=== PATIENT | female | born 1980 ===

== ENCOUNTER 2025-03-02 09:02 | Emergency (ER) | payer OTHER, SELFPAY ==
[2025-03-02] VITALS (14 sets, daily range): BP systolic 92–118; BP diastolic 48–75; BMI 25.1
--- NOTE | 2025-03-02 09:05 | ED.GENMED ---
History of Present Illness
General
Chief Complaint: Abnormal Lab Value
Time Seen by Provider: 03/02/25 09:05
History of Present Illness
History of Present Illness:
FOCUSED PAST MEDICAL HISTORY
- Has had iron infusions in the past, history of meth abuse, remote history of gastric bypass 2008
REVIEW OF OLD RECORDS
- No old records available for review in [facility]
Note:
CHIEF COMPLAINT(S)
Anemia
HISTORY OF PRESENT ILLNESS
The patient is a 44-year-old female presenting to the emergency department for evaluation of anemia. She reports feeling generally well, but recently incarcerated for two weeks, during which time a hemoglobin level of 5.5 g/dL was noted on .
The patient denies any recent blood work prior to this incarceration except for a few years ago. She reports having had anemia in the past and receiving iron infusions. The patient denies noticeable blood in her stools, black or red stools, coughing
up blood, or significant pain. She reports her menstrual cycles are infrequent, occurring roughly once every three months. On further questioning, she admitted to past drug use.
PAST MEDICAL AND SURIGICAL HISTORY
History of anemia requiring iron infusions.
SOCIAL HISTORY
The patient reported a history of past drug use, unspecified in type.
REVIEW OF SYSTEMS
- Constitution: Appears well, denies significant fatigue.
- Gastrointestinal: Denies hematochezia, melena.
- Respiratory: Denies hemoptysis.
- Genitourinary: Reports irregular menstrual periods.
- Hematologic: Previously diagnosed anemia.
PHYSICAL EXAM
General: Alert, appears somewhat pale, no acute distress.
Skin: Warm, dry.
Head: Normocephalic, atraumatic.
Neck: Supple, trachea midline.
Eye, Ears, Nose, Mouth, and Throat: Oral mucosa moist, poor dentition observed.
Cardiovascular: Normal peripheral perfusion, no edema.
Respiratory: Respirations are non-labored.
Gastrointestinal: Abdomen nondistended.
Back: Normal range of motion, normal alignment.
Musculoskeletal: Normal ROM, normal strength.
Neurological: Alert and oriented to person, place, time, and situation, no focal neurological deficit observed.
Psychiatric: Cooperative, appropriate mood & affect.
PLAN
- Blood work to confirm current hemoglobin levels and investigate further anemia etiology.
- Monitor for additional symptoms or changes in clinical status.
DIFFERENTIAL DIAGNOSIS
The Differential Diagnosis includes, in no particular order and is not limited to:
1. Iron deficiency anemia
2. Anemia of chronic disease
3. Hemolytic anemia
4. Aplastic anemia
5. Myelodysplastic syndrome
6. Thalassemia
7. Hypothyroidism
8. Chronic kidney disease
9. Gastrointestinal bleeding
10. Nutritional deficiency anemia (e.g., vitamin B12 or folate deficiency)
EKG
- Sinus 83, normal axis, no acute ST abnormality
LABS
- Hemoglobin 5.4, white count 2.9, platelets normal, glucose 69, iron 23, iron sat 5%
UPDATE
-SUMMARY OF ENCOUNTER
The patient, a 44-year-old female, presented to the emergency department for evaluation of anemia. She had a recent hemoglobin level of 5.5 g/dL noted during a two-week incarceration. The patient reported a history of anemia requiring iron
infusions, but no significant symptoms at present. A rectal examination was performed to assess for gastrointestinal bleeding, which yielded insufficient stool for testing, hence no conclusive results on the presence of bleeding could be obtained.
Considering her lack of severe symptoms and impending release, the plan is to potentially arrange follow-up with a business process coordinator on an outpatient basis.
PLAN
Arrange for blood transfusion as necessary and coordinate outpatient follow-up with a business process coordinator after the patients release. Discuss logistics with the GI team to confirm outpatient arrangements.
INDEPENDENT REVIEW OF LABS AND INTERPRETATION OF TESTS
My independent review of hemoglobin noted a level of 5.5 g/dL.
PATIENT EDUCATION AND COUNSELING
Discussed the importance of follow-up care, especially with a gastrointestinal specialist, to monitor her anemia and rule out potential sources of bleeding.
MEDICAL DECISION MAKING
-Complexity of Data Reviewed: Chronic conditions affecting care [History of anemia requiring iron infusions]. Differential Diagnosis includes Iron deficiency anemia, Anemia of chronic disease, Hemolytic anemia, Aplastic anemia, Myelodysplastic
syndrome, Thalassemia, Hypothyroidism, Chronic kidney disease, Gastrointestinal bleeding, Nutritional deficiency anemia (e.g., vitamin B12 or folate deficiency).
-Data:
Category 1: Hemoglobin levels reviewed with a significant finding of 5.5 g/dL.
Category 3: Discussion of management with a gastroenterology team was considered but not explicitly detailed in the current note.
-Risk: Consideration of Admission/Observation: Escalation of care including admission/observation was considered given the complexity and risk of the patients presenting complaint, exam findings, and/or their underlying comorbidities. However,
ultimately I feel the patient is safe for outpatient management with close follow-up. Reasoning: Work-up reassuring, does not reveal any acute life/organ-threatening processes, patients symptoms are well controlled upon reevaluation, reexamination
is reassuring, vitals are stable, patient agreeable with discharge, reliable for follow-up.
DIAGNOSIS
Anemia, iron deficiency
I discussed case with Dr. Downs who agrees with close outpatient follow-up. I have also given the contact information for local machine cloth examiner as she does have iron deficiency and may need iron infusions in the future. There is no gross blood
noted on digital rectal examination. She has minimal if any symptoms other than some mild weakness.
Phy Exam
Physical Exam
Physical Exam:
See HPI
Course
Orders/Labs/Results
Orders:
Orders
03/02/25 09:05
Electrocardiogram (*1) Urgent
Reason for Study: Fatigue / Weakness
03/02/25 09:06
EKG- Treatment ONCE
03/02/25 09:17
Type And Crossmatch [Type+Screen] Urgent
Complete Blood Count/With Diff Urgent
Comprehensive Metabolic Panel Urgent
Ferritin Urgent
Iron Urgent
Total Iron Binding Urgent
03/02/25 09:32
* Blood Bank Products Urgent
Blood Bank Products: *Packed RBC Leuko (PRBC's
Quantity: 2
Transfuse Today: Yes
Reason: Anemia
Abnormal Lab Results
03/02/25
09:17
WBC 2.9 L 10^3/uL
(4.8-10.8)
RBC 3.28 L 10^6/uL
(4.20-5.40)
Hgb 5.4 L* g/dL
(12.0-16.0)
Hct 22.3 L %
(37.0-47.0)
MCV 68.0 L fL
(81.0-99.0)
MCH 16.5 L pg
(27.0-31.0)
MCHC 24.2 L g/dL
(33.0-37.0)
RDW 23.1 H %
(11.5-14.5)
Absolute Neuts (auto) 1.2 L 10^3/uL
(1.4-6.5)
Neutrophils % 42.0 L %
(42.2-75.2)
Monocytes % 12.1 H %
(1.7-9.3)
Basophils % 2.1 H %
(0-2)
Glucose 69 L mg/dl
(70-99)
Iron 23 L ug/dl
(37-170)
% Saturation 5 L %
(20-50)
Ferritin 3.7 L ng/ml
(6.24-137)
Crossmatch IS Only See Detail
03/02/25 09:17
03/02/25 09:17
Vital Signs
Initial and Last Documented VS:
Initial Vital Signs
Temp Pulse Resp Pulse Ox
37.0 C 85 16 100
03/02/25 09:07 03/02/25 09:07 03/02/25 09:07 03/02/25 09:07
Last Documented Vital Signs
Temp Pulse Resp BP Pulse Ox
36.8 C 70 15 108/48 100
03/02/25 11:06 03/02/25 11:06 03/02/25 11:06 03/02/25 11:06 03/02/25 11:06
*Pulse Oximetry
Patient hypoxic: no
*Critical Care Note
Total Time (30-74mins, 75-104mins- exclusive of procedures): Not Applicable
ED Attending Note
-
Portions of this chart may have been created with voice recognition software.� Occasional wrong word or��sound alike� substitutions may have occurred due to the inherent limitations of voice recognition software.
Discharge Plan
Departure
Patient Disposition: Home (Routine Discharge)
Date of Disposition: 03/02/25
Time of Disposition: 11:37
Patient with high blood pressure during this ER visit?: No
Discharge Problem:
Anemia
Instructions: Low iron in adults (DC), Anemia overview
Referrals:
Vinod Mccann, [Active, Hematology / Oncology]
[facility] [Family Provider, General]
Maico Downs MD [Active, Gastroenterology]
Activity Restrictions/Additional Instructions:
Your hemoglobin level is low at 5.4. You had no signs of bleeding on examination. We gave two units of blood. Your iron level is low at 23, ferritin is low at 3.7. I spoke to Dr. Downs from GI - you should call their office for follow up. I
will also send their office a message. I also recommend that you follow up with a machine cloth examiner such as Dr. Mccann.
Interventions
Interventions:
*Risk Screen - Suicide Last Done: 03/02/25 09:07
*General Assessment Last Done: 03/02/25 09:07
*Neglect/Abuse Screening Last Done: 03/02/25 09:07
Discharge Date and Time
Print Language: JORDANIAN
[2025-03-02 09:30] LABS: Hematocrit 22.3 % (37.0-47.0); Hemoglobin 5.4 g/dL (12.0-16.0); Mean Corp Hgb Conc. 24.2 g/dL (33.0-37.0); Mean Corpuscular Volume 68.0 fL (81.0-99.0); Platelet Count 183 10^3/uL (130-400); Red Cell Dist. Width 23.1 % (11.5-14.5)
[2025-03-02 09:39] LABS: ALT (SGPT) 17 U/L (0-35); AST (SGOT) 23 U/L (14-36); Albumin 3.9 g/dl (3.5-5.0); Alkaline Phosphatase 67 U/L (38-126); Blood Urea Nitrogen 7 mg/dl (7-17); Calcium 8.4 mg/dl (8.4-10.2); Carbon Dioxide 27 mmol/L (22-30); Chloride 106 mmol/L (98-107); Estimated Creatinine Clearance 87 ml/min; Glucose 69 mg/dl (70-99); Iron 23 ug/dl (37-170); Potassium 3.9 mmol/L (3.5-5.1); Sodium 140 mmol/L (135-145); Total Protein 6.5 g/dl (6.3-8.2); eGFR > 60.00
[2025-03-02 09:49] LABS: Total Iron Binding Capacity 425 ug/dl (265-497)
[2025-03-02 10:08] LABS: Nucleated Red Blood Cells % 0 %
[2025-03-02 10:14] LABS: Ferritin 3.7 ng/ml (6.24-137)
== END 2025-03-02 15:11 ==
LOC: EMR 09:02
PROVIDERS: EMERGENCY PHYSICIAN Emergency Medicine
DX: D50.9 Iron deficiency anemia, unspecified (principal); Z98.84 Bariatric surgery status
CPT/HCPCS: 36430; 99285; 80053; 82728; 83540; 83550; 85025; 86850; 86900; 86901; 86920; 93005; P9016